=== PATIENT | female | born 1985 | race Caucasian/White ===

== ENCOUNTER → 2023-06-12 | Outpatient (CLI) | payer OTHER ==
[~2023-06-12] MED LIST: ALBU90OI INH; BUPR150ER; BUPR150ER PO; BUPR150T2 PO; DOXY100 PO; HYDACE5 PO; HYDGUAL120 PO; IBUP600 PO; METPHE18ER; METPHE18ER PO; METR500 PO; PROM25 PO; RXHYDGUAS PO; TRAM50 PO
[2023-06-13 12:29] LABS: Candida species (DNA Probe) Positive (NEGATIVE); G. vaginalis (DNA Probe) Negative (NEGATIVE); T. vaginalis (DNA Probe) Negative (NEGATIVE)
== END | disposition home or self-care (01) ==
LOC: LAB SHORT 14:54 → LAB 14:54
PROVIDERS: Advanced Practice Midwife
DX: N76.0 Acute vaginitis (principal)
CPT/HCPCS: 87480; 87510; 87660

== ENCOUNTER → 2024-01-02 | Outpatient (CLI) | payer OTHER | END | disposition home or self-care (01) | LOC: LAB SHORT 13:56 | DX: R30.0 Dysuria (principal) | CPT/HCPCS: 87086 ==

== ENCOUNTER → 2024-04-17 | Outpatient (CLI) | payer OTHER | LOC: LAB 17:45 → LAB SHORT 17:45 | DX: R39.89 Other symptoms and signs involving the genitourinary system (principal) | CPT/HCPCS: 87086 ==